=== PATIENT | male | born 1965 | race Caucasian/White ===

== ENCOUNTER 2023-06-28 16:07 | Inpatient (IN) | payer OTHER ==
[~2023-06-28] VITALS: Ht 182.9 cm; Wt 122.7 kg
[2023-06-28 16:29] LABS: Urine WBC None Seen /hpf (0 - 3)
[2023-06-28 16:30] VITALS: PULSE 108; RESP 16; O2SAT 96
[2023-06-28 16:45] LABS: Urine Bacteria NONE SEEN /hpf (None Seen); Urine Blood Negative /uL (Negative); Urine Clarity Clear (Clear); Urine Color Colorless (Yellow); Urine Protein, UAD Negative (Negative); Urine Specific Gravity 1.005 (1.001-1.035); Urine Urobilinogen Normal (Negative)
[2023-06-28] MEDS ORDERED: dilTIAZem 125mg/125ml BAG KIT 125 ML IV ONE (16:45)
[2023-06-28 16:52] LABS: Alanine Aminotransferase 82 U/L (7-40); Albumin 4.7 g/dL (3.2-4.8); Alkaline Phosphatase 106 U/L (46-116); Anion Gap 7.6 (5-15); Aspartate Aminotransferase 49 U/L (13-40); BUN/Creatinine Ratio 12.4 (10.0-20.0); Basophils # (auto) 0.1 10 ^3/uL (0-0.2); Blood Urea Nitrogen 11 mg/dL (9-23); Calcium 9.5 mg/dL (8.7-10.4); Carbon Dioxide 27.4 mmol/L (20-30); Chloride 105 mmol/L (98-107); Eosinophils # (auto) 0.1 10 ^3/uL (0-0.8); Eosinophils % (auto) 0.9 % (0.0-7.0); Glucose 174 mg/dL (74-106); Nucleated Red Blood Cells % 0.1 %; Potassium 4.3 mmol/L (3.5-5.1); Sodium 140 mmol/L (136-145); White Blood Cell 9.4 10^3/uL (4.4-10.8)
[2023-06-28 16:53] LABS: Basophils % (auto) 0.7 % (0.0-2.0); Bilirubin, Total 0.4 mg/dL (0.2-1.0); Hematocrit 39.3 % (41.0-53.0); Hemoglobin 12.1 g/dL (13.5-17.5); Lymphocytes # (auto) 2.1 10 ^3/uL (0.4-5.4); Lymphocytes % (auto) 21.9 % (10.0-50.0); Mean Corpuscular Hgb Conc. 30.9 g/dL (32.0-36.0); Monocytes # (auto) 0.8 10 ^3/uL (0-1.3); Monocytes % (auto) 8.3 % (0.0-12.0); Neutrophils # (auto) 6.4 10 ^3/uL (1.6-8.6); Neutrophils % (auto) 68.2 % (37.0-80.0); Red Blood Cells 5.78 10^6/uL (4.5-5.90); Total Protein 7.2 g/dL (5.7-8.2)
[2023-06-28 16:55] LABS: INR 1.03 (0.9-1.15); Partial Thromboplastin Time 30.3 SEC (24.5-34.5); Prothrombin Time 10.8 sec (9.3-11.8)
[2023-06-28] MEDS ORDERED: ENOXAPARIN SOD 120 MG/0.8 ML SYRINGE SC ONE (18:15)
[2023-06-28] MEDS ORDERED: ACETAMINOPHEN 325 MG TAB PO PRN (19:45)
[2023-06-28] MEDS ORDERED: ALBUTEROL SULF 2.5 MG/0.5ML(0.5%) NEB SOLN NEB PRN (19:45)
[2023-06-28] MEDS ORDERED: MORPHINE SULFATE INJ 2 MG/ml SYRG IV PRN (19:45)
[2023-06-28] MEDS ORDERED: ATOR10TA52 PO (19:45)
[2023-06-28] MEDS ORDERED: NITROGLYCERIN 0.4 MG SL TAB SL PRN (19:45)
[2023-06-28] MEDS ORDERED: LISI40TA16 PO (19:45)
[2023-06-28] MEDS ORDERED: METF-762 PO (19:45)
[2023-06-28] MEDS ORDERED: GLIP5TAB12 PO (19:45)
[2023-06-28] MEDS ORDERED: DEXTROSE (50%) 50ML SYRG IV PRN (19:45)
[2023-06-28] MEDS: SODIUM CHLORIDE 0.9% 1,000 ML IV SCH (20:25)
[2023-06-28 20:30] VITALS: PULSE 79; RESP 21; O2SAT 96
[2023-06-28 21:29] LABS: Triglycerides 143 mg/dL (< 150)
[2023-06-28 21:30] LABS: LDL Cholesterol 58 mg/dL (< 100)
[2023-06-28 21:31] LABS: Cholesterol 101 mg/dL (< 200); HDL Cholesterol 30 mg/dL (40-59)
[2023-06-28] MEDS: ACCU-CHEK COMFORT CURVE STRIP VI SCH (22:00)
[2023-06-28 22:47] LABS: Amphetamine Screen, Urine Neg (NEGATIVE)
[2023-06-28 22:48] LABS: Barbiturate Scree,Urine Neg (NEGATIVE); Benzodiazephine Screen, Urine Neg (NEGATIVE); Cannabinoid Screen, Urine Neg (NEGATIVE); Cocaine Screen, Urine Neg (NEGATIVE); Opiate Scree,Urine Neg (NEGATIVE); Phencyclidine Screen, Urine Neg (NEGATIVE)
[2023-06-28 22:56] VITALS: BP 158/85; PULSE 77; RESP 20; TEMP 98; O2SAT 96
[2023-06-28 22:58] VITALS: O2SAT 96
[2023-06-28] MEDS: InsuLIN REG 1unit/0.01ml Soln (100units/ml) SC SCH (23:19)
[2023-06-29 03:50] VITALS: PULSE 72; RESP 12; O2SAT 96
[2023-06-29] MEDS ORDERED: ENOXAPARIN SOD 120 MG/0.8 ML SYRINGE SC SCH (06:00)
[2023-06-29] MEDS: InsuLIN REG 1unit/0.01ml Soln (100units/ml) SC SCH (06:33)
[2023-06-29 06:42] VITALS: O2SAT 97
[2023-06-29] MEDS: ACCU-CHEK COMFORT CURVE STRIP VI SCH (07:07)
[2023-06-29 07:16] LABS: Eosinophils # (auto) 0.1 10 ^3/uL (0-0.8); Red Blood Cells 5.18 10^6/uL (4.5-5.90)
[2023-06-29 07:18] LABS: Basophils # (auto) 0.1 10 ^3/uL (0-0.2); Basophils % (auto) 0.8 % (0.0-2.0); Eosinophils % (auto) 1.1 % (0.0-7.0); Hematocrit 35.1 % (41.0-53.0); Hemoglobin 11.1 g/dL (13.5-17.5); Lymphocytes # (auto) 1.6 10 ^3/uL (0.4-5.4); Lymphocytes % (auto) 22.8 % (10.0-50.0); Mean Corpuscular Hemoglobin 21.4 pg (28.0-32.0); Mean Corpuscular Hgb Conc. 31.6 g/dL (32.0-36.0); Mean Corpuscular Volume 67.8 fL (80.0-100.0); Monocytes # (auto) 0.5 10 ^3/uL (0-1.3); Monocytes % (auto) 7.1 % (0.0-12.0); Neutrophils # (auto) 4.7 10 ^3/uL (1.6-8.6); Neutrophils % (auto) 68.2 % (37.0-80.0); Red Cell Distribution Width 16.5 % (11.8-14.3); White Blood Cell 6.9 10^3/uL (4.4-10.8)
[2023-06-29 07:53] LABS: Alanine Aminotransferase 74 U/L (7-40); Alkaline Phosphatase 80 U/L (46-116); Anion Gap 6.1 (5-15); Aspartate Aminotransferase 43 U/L (13-40); BUN/Creatinine Ratio 13.8 (10.0-20.0); Blood Urea Nitrogen 11 mg/dL (9-23); Calcium 8.8 mg/dL (8.5-10.1); Carbon Dioxide 26.9 mmol/L (20-30); Chloride 106 mmol/L (98-107); Glucose 212 mg/dL (74-106); Potassium 3.8 mmol/L (3.5-5.1); Sodium 139 mmol/L (136-145)
[2023-06-29 07:54] LABS: Albumin 4.2 g/dL (3.2-4.8); Bilirubin, Total 0.8 mg/dL (0.2-1.0); Total Protein 6.7 g/dL (5.7-8.2)
[2023-06-29 08:00] VITALS: PULSE 72; RESP 12; TEMP 98.7; O2SAT 98
[2023-06-29] MEDS ORDERED: LISINOPRIL 20 MG TAB PO SCH (10:00)
[2023-06-29] MEDS ORDERED: ATORVASTATIN 20 MG TAB PO SCH (10:00)
[2023-06-29] MEDS ORDERED: DEXTROSE (50%) 50ML SYRG IV PRN (10:30)
[2023-06-29] MEDS ORDERED: ACCU-CHEK COMFORT CURVE STRIP VI SCH (11:30)
[2023-06-29] MEDS ORDERED: InsuLIN REG 1unit/0.01ml Soln (100units/ml) SC SCH ×2 (11:30→22:00)
[2023-06-29] MEDS: SODIUM CHLORIDE 0.9% 1,000 ML IV SCH (13:35)
[2023-06-29 15:00] VITALS: BP 159/81; PULSE 76; RESP 13; O2SAT 95
[2023-06-29] MEDS ORDERED: METO-6 PO (16:26)
[2023-06-29] MEDS ORDERED: METOPROLOL TARTRATE 50 MG TAB PO SCH (22:00)
[2023-06-30] MEDS ORDERED: ASPirin 81 mg TAB PO SCH (10:00)
[2023-06-30] MEDS ORDERED: LISINOPRIL 20 MG TAB PO SCH (10:00)
[2023-06-30] MEDS ORDERED: ATORVASTATIN 20 MG TAB PO SCH (10:00)
== END 2023-06-29 16:56 | disposition home or self-care (01) | DRG 281 ==
LOC: EDBD 16:07 → ER 16:07 → TELE 19:43
PROVIDERS: ADMIT Internal Medicine; ATTEND Student in an Organized Health Care Education/Training Program
DX: I21.4 Non-ST elevation (NSTEMI) myocardial infarction (principal); I47.1 Supraventricular tachycardia; I10 Essential (primary) hypertension; E66.01 Morbid (severe) obesity due to excess calories; Z68.36 Body mass index [BMI] 36.0-36.9, adult; J45.909 Unspecified asthma, uncomplicated; E78.5 Hyperlipidemia, unspecified; I16.0 Hypertensive urgency; E11.9 Type 2 diabetes mellitus without complications; D50.9 Iron deficiency anemia, unspecified; R74.01 Elevation of levels of liver transaminase levels; Z82.49 Family history of ischemic heart disease and other diseases of the circulatory system; Z90.49 Acquired absence of other specified parts of digestive tract
CPT/HCPCS: 36415; 71045; 80053; 80061; 80307; 81001; 82962; 83036; 84443; 84484; 85025; 85610; 85730; 93005; 93306; 96365; 96372; 99291; G0378; J1815